=== PATIENT | female | born 1970 | race Caucasian/White ===

== ENCOUNTER 2022-09-11 09:02 | Emergency (ER) | payer BC, SELFPAY ==
--- NOTE | 2022-09-11 09:05 | ED.URI ---
HPI - URI/Sore Throat General Chief Complaint: Ear Stated Complaint: ear pain Time Seen by Provider: 09/11/22 09:05 Source: patient and RN notes reviewed History of Present Illness HPI Narrative: Patient is a 52-year-old female who presents to urgent care with complaints of right ear pain. Patient feels that it is clogged . States that it started approximately 24 hours ago. She has been taking her normal dose of montelukast for her symptoms. Denies any fevers. No other acute complaints. No acute distress noted. Patient aware of the plan of care. Some parts of this dictation were generated by voice recognition software and may contain typographical and/or grammatical inaccuracies. Related Data Home Medications Medication Instructions Recorded Confirmed montelukast 10 mg tablet 10 mg PO DAILY 09/11/22 09/11/22 (Singulair) Allergies Allergy/AdvReac Type Severity Reaction Status Date / Time No Known Allergies Allergy Verified 09/11/22 09:13 Review of Systems Review of Systems: CONSTITUTIONAL: Denies fever, chills, or sweats. EYES: Denies visual changes, redness, or discharge. ENT: Denies rhinorrhea, congestion, sore throat. Reports of right ear pain CARDIOVASCULAR: Denies chest pain, palpitations, or edema. RESPIRATORY: Denies cough or dyspnea. GASTROINTESTINAL: Denies abdominal pain, nausea, vomiting, or diarrhea. GENITOURINARY: Denies dysuria or hematuria. SKIN: Denies rash or itching. MUSCULOSKELETAL: Denies back pain, joint pain, or myalgia. NEUROLOGIC: Denies headache, numbness, or weakness. All other systems reviewed are negative, except as documented in HPI. PMFSH Comments At the time of my signature, I reviewed and agree with the nursing past medical, surgical, social, and family history. There is no relevant family history pertinent to the patient complaint. Exam Narrative: GENERAL: This is a well-nourished, well-developed patient, in no apparent distress. HEAD: normocephalic, atraumatic. EYES: PERRL. Sclera clear/white. Vision is grossly intact. EARS: External ears normal, mildly edematous right auditory ear canal without drainage. Left auditory canals clear and without drainage, TMs normal without perforation. Hearing grossly intact. NOSE: External nose normal with no obvious nasal discharge, nares without redness, no rhinorrhea. THROAT: Mucous membranes moist, posterior pharynx clear. NECK: Neck supple CARDIOVASCULAR: Regular rate and rhythm without murmurs, gallops, or rubs. RESPIRATORY: Clear to auscultation. Breath sounds equal bilaterally. No wheezes, rales, or rhonchi. SKIN: warm, intact with no suspicious lesions or rash, good texture and turgor. NEURO: awake, alert, and oriented to person, place and time. There were no obvious focal neurologic abnormalities. EXTREMITIES: No clubbing, cyanosis, or edema. Course Course Level of Care: Express Care Visit Vital Signs Vital signs: Vital Signs Temperature 98.5 F 09/11/22 09:09 Pulse Rate 65 09/11/22 09:09 Respiratory Rate 16 09/11/22 09:09 Blood Pressure 124/83 09/11/22 09:09 Pulse Oximetry 99 09/11/22 09:09 Oxygen Delivery Room Air 09/11/22 09:09 Temperature 98.5 F 09/11/22 09:14 Pulse Rate 65 09/11/22 09:14 Respiratory Rate 16 09/11/22 09:14 Blood Pressure 124/83 09/11/22 09:14 Pulse Oximetry 99 09/11/22 09:14 Oxygen Delivery Room Air 09/11/22 09:14 reviewed MDM - URI/Sore Throat MDM Narrative Medical decision making narrative: advised patient to put anything in the ear suggest Q-tips, peroxide, water. May use warm compress over the year for comfort or Tylenol/ ibuprofen for pain. Use the drops to the right ear as directed. Complete the steroid regimen as prescribed. Be sure to eat and drink with medication. Would continue a daily antihistamine. Follow-up with your PCP within 2-5 days or for worsening symptoms or failure to improve. Differential Diagnosis Differential
[2022-09-11 09:09] VITALS: BP 124/83; PULSE 65; RESP 16; TEMP 36.9; O2SAT 99
[2022-09-11 09:14] VITALS: BP 124/83; PULSE 65; RESP 16; TEMP 36.9; O2SAT 99
== END 2022-09-11 09:50 | disposition home or self-care (01) ==
PROVIDERS: Emergency Provider Nurse Practitioner Family; PCP Internal Medicine
DX: H60.91 Unspecified otitis externa, right ear (principal)
CPT/HCPCS: 99213; G0463